=== PATIENT | male | born 1975 | race Native Hawaiian/Other Pacific Islander ===

== ENCOUNTER 2016-05-21 09:10 | Emergency (ER) | payer OTHER ==
[~2016-05-21] VITALS: Ht 175.3 cm; Wt 77.1 kg
[2016-05-21 10:05] LABS: PLATELET COUNT 300 K/uL (142-355)
[2016-05-21 10:29] LABS: POTASSIUM 3.8 mmol/L (3.6-5.2); SODIUM 137 mmol/L (136-145)
[2016-05-21 11:05] VITALS: BP 172/98; TEMP 97
== END 2016-05-21 11:11 | disposition home or self-care (01) ==
LOC: ED 09:10
DX: M50.322 Other cervical disc degeneration at C5-C6 level (principal); M54.12 Radiculopathy, cervical region; M25.78 Osteophyte, vertebrae
CPT/HCPCS: 36415; 80053; 80307; 81000; 82550; 82553; 84484; 85027; 93005; 99283; G0479

== ENCOUNTER 2017-10-22 15:54 | Outpatient (CLI) | payer OTHER | END 2017-10-22 22:41 | disposition home or self-care (01) | LOC: RAD 15:54 | DX: M54.16 Radiculopathy, lumbar region (principal); M79.671 Pain in right foot ==

== ENCOUNTER 2018-03-27 15:52 | Emergency (ER) | payer OTHER ==
[~2018-03-27] VITALS: Ht 177.8 cm; Wt 75.8 kg
[2018-03-27 16:07] VITALS: BP 157/97; TEMP 98.1
[2018-03-27] MEDS ORDERED: LITHIUM CARB300 M1 PO (16:19)
[2018-03-27] MEDS ORDERED: DIVA125C PO (16:19)
[2018-03-27] MEDS ORDERED: CLARITIN10 M1 PO (16:20)
[2018-03-27] MEDS ORDERED: DULO60CA2 PO (16:20)
[2018-03-27] MEDS ORDERED: HYDR10TA47 PO (16:20)
[2018-03-27] MEDS ORDERED: RISP1TAB PO (16:21)
[2018-03-27] MEDS ORDERED: OMEPRAZOLE20 M2 PO (16:21)
[2018-03-27] MEDS ORDERED: LIPITOR40 MG PO (16:22)
[2018-03-27] MEDS ORDERED: MELATONIN3 M1 PO (16:22)
[2018-03-27 17:04] LABS: PLATELET COUNT 318 K/uL (142-355)
[2018-03-27 17:14] LABS: POTASSIUM 3.6 mmol/L (3.6-5.2)
== END 2018-03-27 19:16 | disposition other institution (70) ==
LOC: ED 15:52
DX: F43.10 Post-traumatic stress disorder, unspecified (principal); Z04.6 Encounter for general psychiatric examination, requested by authority
CPT/HCPCS: 36415; 80053; 80307; 80320; 80329; 81000; 85027; 93005; 99285

== ENCOUNTER 2018-03-28 13:14 | Emergency (ER) | payer OTHER ==
[~2018-03-28] VITALS: Ht 177.8 cm; Wt 75.8 kg
[~2018-03-28 13:14] MED LIST: CLARITIN10 M1 PO; DIVA125C PO; DULO60CA2 PO; HYDR10TA47 PO; LIPITOR40 MG PO; LITHIUM CARB300 M1 PO; MELATONIN3 M1 PO; OMEPRAZOLE20 M2 PO; RISP1TAB PO
[2018-03-28 13:22] VITALS: BP 167/92; TEMP 98.1
== END 2018-03-28 16:07 | disposition other institution (70) ==
LOC: ED 13:14
DX: F43.10 Post-traumatic stress disorder, unspecified (principal); F28 Other psychotic disorder not due to a substance or known physiological condition
CPT/HCPCS: 99285

== ENCOUNTER 2018-11-20 10:00 | Outpatient (CLI) | payer OTHER | END 2018-11-20 22:16 | disposition home or self-care (01) | LOC: MRI 10:00 | DX: M54.5 Low back pain (principal) | CPT/HCPCS: 36415; 82565; 84520; A9576 ==

== ENCOUNTER 2019-11-03 10:39 | Outpatient (CLI) | payer OTHER | END 2019-11-03 21:29 | disposition home or self-care (01) | LOC: MRI 10:39 | DX: M54.2 Cervicalgia (principal) ==

== ENCOUNTER 2020-02-21 09:48 | Outpatient (CLI) | payer OTHER | END 2020-02-21 19:40 | disposition home or self-care (01) | LOC: EMG 09:48 | PROVIDERS: ATTEND Nurse Practitioner Family | DX: M54.12 Radiculopathy, cervical region (principal) | CPT/HCPCS: 95861; 95911 ==

== ENCOUNTER 2020-06-30 19:22 | Emergency (ER) | payer OTHER ==
[~2020-06-30] VITALS: Ht 177.8 cm; Wt 85.3 kg
[2020-06-30 19:29] VITALS: TEMP 97.9
[2020-06-30 21:53] LABS: PLATELET COUNT 290 K/uL (142-355)
[2020-06-30 21:58] LABS: POTASSIUM 3.3 mmol/L (3.6-5.2)
[2020-06-30 23:12] VITALS: BP 142/86
== END 2020-06-30 23:14 | disposition home or self-care (01) ==
LOC: ED 19:22
PROVIDERS: Family Medicine
DX: I10 Essential (primary) hypertension (principal); R51.9 Headache, unspecified; E87.6 Hypokalemia
CPT/HCPCS: 36415; 80053; 80307; 81000; 85027; 99283

== ENCOUNTER 2020-10-18 13:39 | Emergency (ER) | payer OTHER ==
[~2020-10-18] VITALS: Ht 177.8 cm; Wt 77.1 kg
[2020-10-18 14:48] LABS: POTASSIUM 3.8 mmol/L (3.6-5.2)
[2020-10-18 15:25] LABS: PLATELET COUNT 206 K/uL (142-355)
[2020-10-18 16:00] VITALS: TEMP 99
[2020-10-18 17:42] VITALS: BP 145/78
== END 2020-10-18 17:43 | disposition home or self-care (01) ==
LOC: ED 13:39
PROVIDERS: Family Medicine
DX: J18.9 Pneumonia, unspecified organism (principal)
CPT/HCPCS: 80053; 83605; 85027; 96360; 96365; 99284; J1956

== ENCOUNTER 2020-10-19 17:10 | Emergency (ER) | payer OTHER ==
[~2020-10-19] VITALS: Ht 177.8 cm; Wt 77.1 kg
[2020-10-19 18:28] LABS: PLATELET COUNT 232 K/uL (142-355)
[2020-10-19 18:38] LABS: POTASSIUM 4.4 mmol/L (3.6-5.2)
[2020-10-19 20:05] VITALS: BP 128/72; TEMP 98.3
== END 2020-10-19 20:05 | disposition home or self-care (01) ==
LOC: ED 17:10
PROVIDERS: Emergency Medicine Emergency Medical Services
DX: U07.1 COVID-19 (principal)
CPT/HCPCS: 36600; 80053; 82805; 83605; 84484; 85027; 87040; 87635; 93005; 96365; 99284; J1100; U0003

== ENCOUNTER 2020-11-09 09:51 | Outpatient (CLI) | payer OTHER ==
[2020-11-09 10:34] LABS: POTASSIUM 4.2 mmol/L (3.6-5.2)
[2020-11-09 10:37] LABS: PLATELET COUNT 495 K/uL (142-355)
== END 2020-11-09 20:13 | disposition home or self-care (01) ==
LOC: RAD 09:51
PROVIDERS: ATTEND Nurse Practitioner Family
DX: U07.1 COVID-19 (principal)
CPT/HCPCS: 36415; 80053; 82728; 85027; 85379; 86140

== ENCOUNTER 2021-02-01 15:29 | Emergency (ER) | payer OTHER ==
[~2021-02-01] VITALS: Ht 177.8 cm; Wt 84.4 kg
[2021-02-01 16:21] LABS: PLATELET COUNT 326 K/uL (142-355)
[2021-02-01 21:35] VITALS: BP 135/76; TEMP 98.5
== END 2021-02-01 21:35 | disposition home or self-care (01) ==
LOC: ED 15:29
PROVIDERS: Emergency Medicine
DX: R10.84 Generalized abdominal pain (principal)
CPT/HCPCS: 36415; 80053; 80320; 82150; 83690; 85027; 96374; 96375; 99284; J2175; J2405; Q9963

== ENCOUNTER 2021-04-20 20:17 | Emergency (ER) | payer OTHER ==
[~2021-04-20] VITALS: Ht 177.8 cm; Wt 78.0 kg
[2021-04-20 21:33] VITALS: BP 141/89; TEMP 98
== END 2021-04-20 21:33 | disposition home or self-care (01) ==
LOC: ED 20:17
DX: J06.9 Acute upper respiratory infection, unspecified (principal); Z20.822 Contact with and (suspected) exposure to COVID-19
CPT/HCPCS: 87502; 87635; 87651; 93005; 99283; U0003

== ENCOUNTER 2021-07-03 08:39 | Outpatient (CLI) | payer OTHER | END 2021-07-03 18:52 | disposition home or self-care (01) | LOC: MRI 08:39 | PROVIDERS: ATTEND Family Medicine | DX: F31.13 Bipolar disorder, current episode manic without psychotic features, severe (principal); F31.32 Bipolar disorder, current episode depressed, moderate; K21.9 Gastro-esophageal reflux disease without esophagitis; M54.50 Low back pain, unspecified; E78.2 Mixed hyperlipidemia; M47.892 Other spondylosis, cervical region; F43.12 Post-traumatic stress disorder, chronic ==

== ENCOUNTER 2021-11-30 15:17 | Emergency (ER) | payer OTHER ==
[~2021-11-30] VITALS: Ht 177.8 cm; Wt 78.0 kg
[2021-11-30 15:26] VITALS: TEMP 98.6
[2021-11-30 16:08] VITALS: BP 110/70
== END 2021-11-30 16:08 | disposition home or self-care (01) ==
LOC: ED 15:17
DX: S16.1XXA Strain of muscle, fascia and tendon at neck level, initial encounter (principal); S13.100A Subluxation of unspecified cervical vertebrae, initial encounter; X58.XXXA Exposure to other specified factors, initial encounter; Y93.64 Activity, baseball; Y92.89 Other specified places as the place of occurrence of the external cause
CPT/HCPCS: 96372; 99282; J1885; J2930

== ENCOUNTER 2022-01-25 16:58 | Outpatient (CLI) | payer OTHER ==
[2022-01-25 17:31] LABS: POTASSIUM 4.2 mmol/L (3.6-5.2)
[2022-01-25 17:32] LABS: PLATELET COUNT 584 K/uL (142-355)
[2022-01-26] MEDS ORDERED: DICL75TA4 PO (17:18)
[2022-01-26] MEDS ORDERED: DIVA500T2 PO (17:19)
[2022-01-26] MEDS ORDERED: HYDROXYZINE HYD50 MG PO (17:19)
[2022-01-26] MEDS ORDERED: REMERON30 MG PO (17:20)
[2022-01-26] MEDS ORDERED: ZYPREXA ZYDI20 MG PO (17:21)
[2022-01-26] MEDS ORDERED: GUANFACINE1 MG PO (17:21)
[2022-01-26] MEDS ORDERED: SERT100T PO (17:22)
[2022-01-26] MEDS ORDERED: LISI10TA11 PO (17:23)
[2022-01-26] MEDS ORDERED: DOCU100C10 PO (17:24)
[2022-01-26] MEDS ORDERED: CYCL10TA35 PO (17:24)
[2022-01-26] MEDS ORDERED: METO50TA63 PO (17:24)
== END 2022-01-25 20:36 | disposition home or self-care (01) ==
LOC: RESP 16:58
PROVIDERS: ATTEND Nurse Practitioner Family
DX: R53.82 Chronic fatigue, unspecified (principal); G25.2 Other specified forms of tremor
CPT/HCPCS: 36415; 80053; 80164; 80178; 82550; 82553; 84484; 85007; 85027; 93005

== ENCOUNTER 2022-01-25 18:46 | Inpatient (IN) | payer OTHER ==
[~2022-01-25] VITALS: Ht 175.3 cm; Wt 77.8 kg
[2022-01-25] VITALS (8 sets, daily range): BP systolic 109–131; BP diastolic 53–70; TEMP 98.5
[2022-01-25 20:46] LABS: PLATELET COUNT 601 K/uL (142-355)
[2022-01-25 20:48] LABS: POTASSIUM 4.2 mmol/L (3.6-5.2)
[2022-01-25 20:51] LABS: PARTIAL THROMBOPLASTIN TIME 31.2 SECONDS (24.5-33.6)
[2022-01-26] VITALS (11 sets, daily range): BP systolic 109–129; BP diastolic 51–68; TEMP 97.7–98.5; Ht 175.3 cm; Wt 77.8 kg
[2022-01-26 04:55] LABS: PLATELET COUNT 472 K/uL (142-355)
[2022-01-26 05:25] LABS: POTASSIUM 3.9 mmol/L (3.6-5.2)
[2022-01-26] MEDS ORDERED: DICL75TA4 PO (17:18)
[2022-01-26] MEDS ORDERED: HYDROXYZINE HYD50 MG PO (17:19)
[2022-01-26] MEDS ORDERED: DIVA500T2 PO (17:19)
[2022-01-26] MEDS ORDERED: REMERON30 MG PO (17:20)
[2022-01-26] MEDS ORDERED: GUANFACINE1 MG PO (17:21)
[2022-01-26] MEDS ORDERED: ZYPREXA ZYDI20 MG PO (17:21)
[2022-01-26] MEDS ORDERED: SERT100T PO (17:22)
[2022-01-26] MEDS ORDERED: LISI10TA11 PO (17:23)
[2022-01-26] MEDS ORDERED: DOCU100C10 PO (17:24)
[2022-01-26] MEDS ORDERED: CYCL10TA35 PO (17:24)
[2022-01-26] MEDS ORDERED: METO50TA63 PO (17:24)
[2022-01-27] VITALS (7 sets, daily range): BP systolic 112–145; BP diastolic 65–80; TEMP 97.7–98.5
[2022-01-28 03:56] VITALS: BP 142/84; TEMP 97.8
[2022-01-28 05:42] LABS: PLATELET COUNT 161 K/uL (142-355)
[2022-01-28 06:44] LABS: POTASSIUM 3.9 mmol/L (3.6-5.2)
[2022-01-28 08:00] VITALS: BP 138/81; TEMP 98
[2022-01-28 12:00] VITALS: BP 151/90; TEMP 97.9
[2022-01-28 16:00] VITALS: BP 128/79; TEMP 97.9
[2022-01-28 20:05] VITALS: BP 153/87; TEMP 97.7
[2022-01-29 00:30] VITALS: BP 160/92; TEMP 97.8
[2022-01-29 04:00] VITALS: BP 157/85; TEMP 98.3
[2022-01-29 07:54] VITALS: BP 153/80; TEMP 97.6
[2022-01-29] MEDS ORDERED: LEVO250T2 PO (09:24)
== END 2022-01-29 11:10 | disposition home or self-care (01) | DRG 195 ==
LOC: ED 18:46 → MED/SURG 01-26 00:45
PROVIDERS: ADMIT Emergency Medicine; ATTEND Internal Medicine
DX: J18.8 Other pneumonia, unspecified organism (principal); T43.595A Adverse effect of other antipsychotics and neuroleptics, initial encounter; Y92.89 Other specified places as the place of occurrence of the external cause; E78.49 Other hyperlipidemia; I10 Essential (primary) hypertension; F43.10 Post-traumatic stress disorder, unspecified; R00.1 Bradycardia, unspecified; F25.0 Schizoaffective disorder, bipolar type; R53.1 Weakness
CPT/HCPCS: 36415; 80053; 80178; 81002; 82140; 82533; 83605; 83735; 83880; 84100; 84145; 84439; 84443; 84484; 85007; 85027; 85610; 85730; 86140; 87040; 87635; 93005; 96360; 96361; 96365; 96375; 99285; J1650; J2543; J3370; J7120; U0003

== ENCOUNTER 2022-02-05 11:54 | Outpatient (CLI) | payer OTHER ==
[~2022-02-05 11:54] MED LIST changes: +CYCL10TA35 PO; +DICL75TA4 PO; +DIVA500T2 PO; +DOCU100C10 PO; +GUANFACINE1 MG PO; +HYDROXYZINE HYD50 MG PO; +LEVO250T2 PO; +LISI10TA11 PO; +METO50TA63 PO; +REMERON30 MG PO; +SERT100T PO; +ZYPREXA ZYDI20 MG PO
[2022-02-05 12:16] LABS: PLATELET COUNT 475 K/uL (142-355)
[2022-02-05 12:30] LABS: POTASSIUM 3.5 mmol/L (3.6-5.2)
== END 2022-02-05 20:13 | disposition home or self-care (01) ==
LOC: LABW 11:54
PROVIDERS: ATTEND Nurse Practitioner Family
DX: G25.2 Other specified forms of tremor (principal); R89.2 Abnormal level of other drugs, medicaments and biological substances in specimens from other organs, systems and tissues; E86.0 Dehydration
CPT/HCPCS: 36415; 80053; 80164; 80178; 81002; 85027

== ENCOUNTER 2022-03-07 14:01 | Outpatient (CLI) | payer OTHER | END 2022-03-07 21:36 | disposition home or self-care (01) | LOC: RAD 14:01 | PROVIDERS: ATTEND Nurse Practitioner Family | DX: M50.30 Other cervical disc degeneration, unspecified cervical region (principal) ==

== ENCOUNTER 2022-08-05 17:31 | Observation (INO) | payer OTHER ==
[~2022-08-05] VITALS: Ht 180.3 cm; Wt 82.1 kg
[~2022-08-05 17:31] MED LIST changes: -LISI10TA11 PO; +ZESTRIL40 MG PO
[2022-08-05 18:56] VITALS: BP 104/63; TEMP 97.6; Ht 180.3 cm; Wt 82.1 kg
[2022-08-05 20:00] VITALS: BP 106/73; TEMP 97.9
[2022-08-05 20:34] LABS: PLATELET COUNT 291 K/uL (142-355)
[2022-08-05 20:43] LABS: POTASSIUM 3.5 mmol/L (3.6-5.2)
[2022-08-06] VITALS (7 sets, daily range): BP systolic 108–123; BP diastolic 60–78; TEMP 97.9–99.2
[2022-08-06 09:10] LABS: POTASSIUM 3.5 mmol/L (3.6-5.2)
[2022-08-06] MEDS ORDERED: AMLODIPINE BESYLATE PO (09:14)
[2022-08-06 15:05] LABS: PLATELET COUNT 283 K/uL (142-355)
[2022-08-06 15:13] LABS: POTASSIUM 4.5 mmol/L (3.6-5.2)
[2022-08-07 04:00] VITALS: BP 122/73; TEMP 99.1
[2022-08-07 07:38] VITALS: BP 123/77; TEMP 98
[2022-08-07 11:37] VITALS: BP 128/75; TEMP 98.4
== END 2022-08-07 17:26 | disposition home or self-care (01) ==
LOC: MED/SURG 17:31
PROVIDERS: ADMIT Family Medicine; ATTEND Family Medicine
DX: R41.82 Altered mental status, unspecified (principal); R19.7 Diarrhea, unspecified; E86.0 Dehydration; R10.9 Unspecified abdominal pain
CPT/HCPCS: 36415; 80048; 80053; 81000; 82272; 82550; 83735; 84100; 85027; 87015; 87040; 87045; 87324; 87328; 87329; 87449; 87502; 87899; 93005; 96360; 96361; 96365; 99220; 99221; G0378; G0379; J3475

== ENCOUNTER 2022-11-07 09:09 | Outpatient (CLI) | payer OTHER ==
[~2022-11-07 09:09] MED LIST changes: +AMLODIPINE BESYLATE PO
== END 2022-11-07 19:55 | disposition home or self-care (01) ==
LOC: RAD 09:09
PROVIDERS: ATTEND Physician Assistant
DX: M54.2 Cervicalgia (principal)